=== PATIENT | male | born 1950 | race African-American/Black ===

== ENCOUNTER 2024-12-26 08:52 | Emergency (ER) | payer MEDICARE, MEDICAID, SELFPAY ==
[2024-12-26 09:13] VITALS: BP 146/86; PULSE 76; RESP 16; TEMP 36.4; O2SAT 100
--- NOTE | 2024-12-26 09:17 | ED.EYEPROB ---
HPI - Eye Problem General Chief complaint: Eye Problems Stated complaint: right eye red,discharge,puffy Time Seen by Provider: 12/26/24 09:20 Source: patient and RN notes reviewed Mode of arrival: ambulatory Limitations: no limitations History of Present Illness HPI Narrative: 74-year-old male presents to the [facility] with right eye redness, drainage, crusting this morning. Denies any visual changes. Denies any pain. Patient reports that on Wednesday had a yd sale, started the next day. Onset (ago): day(s) Related Data Allergies Allergy/AdvReac Type Severity Reaction Status Date / Time No Known Allergies Allergy Unverified 12/26/24 09:11 Review of Systems Review of Systems: All systems reviewed & are unremarkable except as noted in HPI and below Constitutional: Constitutional: Reports no additional constitutional complaints Eyes: Eyes: Reports as per HPI ENT: Reports system reviewed and no additional complaints, except as documented Cardiovascular: Cardiovascular: Reports no additional cardiovascular complaints, Denies chest pain and Denies dyspnea Respiratory: Respiratory: Reports no additional respiratory complaints, Denies chest congestion, Denies cough and Denies dyspnea Musculoskeletal: Musculoskeletal: Reports no additional musculoskeletal complaints Integumentary/Breasts: Skin/Breast: Reports system reviewed and no additional complaints, except as docu PMFSH Social History Social History Alcohol intake: current Comments At the time of my signature, I reviewed and agree with the nursing past medical, surgical, social, and family history. There is no relevant family history pertinent to the patient complaint. Exam Const: General: cooperative, healthy appearing, comfortable, no acute distress, well developed, alert and well nourished Nutritional Appearance: well nourished Orientation/consciousness: patient oriented x3 Limitations: no limitations HENMT: Head: normal to inspection Eyes: General: appearance normal, both eyes and all related structures Visual Jaime: normal visual jaime by confrontation Alignment and Position: alignment normal Eyelids: eyelids normal Conjunctivae: conjunctival abnormality bilateral conjunctival injection and discharge other (Clear drainage) Neck: Neck: normal visual inspection, full ROM, no lymphadenopathy and no meningeal signs Chest: Chest palpation & inspection: normal inspection of the chest Resp: Effort & Inspection: normal respiratory effort and able to speak in complete sentences Auscultation: clear to auscultation bilaterally, no crackles, no rales, no rhonchi and no wheezes Cardio: Rate: regular rate Skin: General skin exam: normal color and no rashes or lesions noted Neuro: General: patient oriented x3, gait normal, moves all extremities and no meningeal signs Cognition (Neuro): normal cognition Speech: normal speech Gait exam (Neuro): Normal gait present Extrem: General: normal to inspection, full ROM, capillary refill normal and normal gait Psych: Appearance: grossly normal and well kempt Mental Status: mental status grossly normal Speech and movement: Normal speech and movement present and Clear speech present Affect: normal affect Attitude: cooperative Course Course Level of Care: Express Care Visit Vital Signs Vital signs: Vital Signs Temperature 97.6 F 12/26/24 09:13 Pulse Rate 76 12/26/24 09:13 Respiratory Rate 16 12/26/24 09:13 Blood Pressure 146/86 H 12/26/24 09:13 Pulse Oximetry 100 12/26/24 09:13 Oxygen Delivery Room Air 12/26/24 09:13 Temperature 97.6 F 12/26/24 09:13 Pulse Rate 76 12/26/24 09:13 Respiratory Rate 16 12/26/24 09:13 Blood Pressure 146/86 H 12/26/24 09:13 Pulse Oximetry 100 12/26/24 09:13 Oxygen Delivery Room Air 12/26/24 09:13 Reviewed MDM - Eye Problem MDM Narrative Medical decision making narrative: Patient sitting comfortably in exam room. Nontoxic, vitals are stable. Patient presents with concerns for eye irritation. Denies any trauma. Discussed conjunctivitis most likely allergen but will cover due to patient's age in symptoms with an antibiotic. Patient appropriate for outpatient treatment with close follow-up Discharge instructions reviewed with patient, as well as provided in writing per nursing staff. The instructions also include specific and strict return/GO TO THE ER as well as f/u information. All questions have been answered, and the patient deny any further questions with discharge and discharge plan. Some parts of this dictation were generated by voice recognition software and may contain typographical and/or grammatical inaccuracies. Differential Diagnosis Differential diagnosis: Likely corneal abrasion and conjunctivitis Critical Care Time Critical Care Time Critical Care Time: No Discharge Plan Discharge Clinical Impression: Conjunctivitis Qualifiers: Conjunctivitis type: acute Acute conjunctivitis type: unspecified Patient Disposition: Home Condition: Stable Instructions: Conjunctivitis (ED) Additional Instructions: Today your blood pressure was 146/86 Apply a cool, damp compress to your affected eye. Be sure to use a clean cloth each time to avoid spreading the infection. Gently clean your eyes with wet cotton balls or pads to remove crusty buildup or irritating discharge. Use eye drops as prescribed. Maintain good hygiene and only touch your eyes with freshly washed hands. You should follow-up with an eye doctor within the next 72 hours Tj: Harris- [phone] [facility] [phone] [facility] [phone] Laith: [facility] [phone] or [phone] [facility] [phone] [facility] [phone] [facility] [phone] [facility]- [phone] Patient Language: Serbian Prescriptions: New ofloxacin 0.3 % drops See Rx Instructions EACH EYE .COMPLEX Qty: 5 0RF Rx Instructions: put 1 drop into each eye every 2-4 h x 2 days, then 1 drop 4 times/day days 3-7 Follow-up/Referrals: PHYSICIAN,TERRAZZO LAYER HELPER [Primary Care Provider] - Time of Disposition: 09:42
== END 2024-12-26 09:46 | disposition home or self-care (01) ==
PROVIDERS: Emergency Provider Nurse Practitioner
DX: H10.9 Unspecified conjunctivitis (principal)
CPT/HCPCS: 99213; G0463

== ENCOUNTER 2025-03-20 11:15 | Emergency (ER) | payer MEDICARE, MEDICAID, SELFPAY ==
[2025-03-20 11:24] VITALS: BP 166/77; PULSE 83; RESP 14; TEMP 36.6; O2SAT 96
--- NOTE | 2025-03-20 11:28 | ED.EYEPROB ---
HPI - Eye Problem General Chief complaint: Eye Problems Stated complaint: R Eye Irritation Time Seen by Provider: 03/20/25 11:28 Source: patient Mode of arrival: ambulatory Limitations: no limitations History of Present Illness HPI Narrative: 74-year-old male presented for complaint of right upper eyelid swelling, redness, and pain to touch. Onset 2 days. States he has been waking with crust to the lashes and has noted yellow drainage at times. Patient does not were contact lenses. He denies vision changes, photophobia, foreign body sensation, eye injury, or headache. chief complaint: eye pain Related Data Allergies Allergy/AdvReac Type Severity Reaction Status Date / Time No Known Allergies Allergy Verified 03/20/25 11:17 Review of Systems Review of Systems: CONSTITUTIONAL: Denies body aches, fever, chills EYES:Endorses swelling, redness and pain to right upper eyelid Denies visual changes, FB sensation, photophobia ENT: Denies rhinorrhea, congestion, sore throat, or otalgia. CARDIOVASCULAR: Denies chest pain, palpitations RESPIRATORY: Denies cough or dyspnea. SKIN: Denies rash, itching, or wounds. NEUROLOGIC: Denies headache All systems reviewed & are unremarkable except as noted in HPI and below PMFSH Social History Social History Alcohol intake: current Comments At time of signature, I have reviewed and agree with nursing past medical, surgical, social and family history unless otherwise noted. Please see nursing chart for further information. There is no relevant family history pertinent to the presenting complaint Exam Narrative: GENERAL: Well-appearing HEAD: Normocephalic, atraumatic. EYES: right upper eye lid swelling, redness, localized tenderness; internal hordeolum noted. No conjunctival injection. PERRLA EOMI. Lid eversion Shows no FB ENT: Mucous membranes pink and moist. No rhinorrhea. HEART: Regular rate and rhythm. ABDOMEN: Soft, nontender, nondistended SKIN: Warm, dry, no rash. Normal skin turgor. NEURO: No focal deficits. Alert and oriented x3 PSYCH: Normal affect. Course Course Emergency Course: Patient is aware of diagnosis, understands and agrees to treatment plan. Anticipatory guidance given. Patient agrees to follow-up as directed and is aware of reasons to seek care at the emergency department. Portions of this record may have been created with voice recognition software Level of Care: Express Care Visit Vital Signs Vital signs: Vital Signs Temperature 98 F 03/20/25 11:24 Pulse Rate 83 03/20/25 11:24 Respiratory Rate 14 03/20/25 11:24 Blood Pressure 166/77 H 03/20/25 11:24 Pulse Oximetry 96 03/20/25 11:24 Oxygen Delivery Room Air 03/20/25 11:24 Temperature 98 F 03/20/25 11:24 Pulse Rate 83 03/20/25 11:24 Respiratory Rate 14 03/20/25 11:24 Blood Pressure 166/77 H 03/20/25 11:24 Pulse Oximetry 96 03/20/25 11:24 Oxygen Delivery Room Air 03/20/25 11:24 MDM - Eye Problem MDM Narrative Medical decision making narrative: Discussed physical exam findings consistent with right upper eyelid internal hordeolum. Reviewed treatment measures at least, patient does not have a PCP to follow up with therefore will send an antibiotic in case he develops some cellulitis. Provided also with a list of pcp's. Advised supportive measures and signs/symptoms to go to the ER. Pt is appropriate for outpt treatment and f/u. Differential Diagnosis Differential diagnosis: Likely corneal abrasion, conjunctivitis, acute iritis and other Discharge Plan Discharge Clinical Impression: Internal hordeolum of right eye Patient Disposition: Home Condition: Stable Instructions: Antibiotic Jesús, Lázaro (ED) Additional Instructions: Apply warm, moist compresses on the affected area frequently (for 5 to 10 minutes three to five times per day) in order to help with drainage. Massage and gentle wiping of the affected eyelid after the warm compress can also help with drainage. You can use baby shampoo to wash the eye area If you notice redness, swelling and pain surrounding the eye, you can start the antibiotic as directed. If the lesion does not improve within one week, please follow up with an framing mill operator helper for further management. Go to the ER for worsening symptoms or concerns [facility] [phone] [facility] [phone] [facility] [phone] [facility] [phone] Patient Language: Setswana Prescriptions: New cephalexin 500 mg capsule 500 mg PO Q8H 5 Days Qty: 15 0RF Follow-up/Referrals: PHYSICIAN,AIR CONDITIONING SHEET METAL INSTALLER [Primary Care Provider] - Time of Disposition: 11:41
== END 2025-03-20 11:45 | disposition home or self-care (01) ==
PROVIDERS: Emergency Provider Nurse Practitioner Family
DX: H00.021 Hordeolum internum right upper eyelid (principal); I10 Essential (primary) hypertension
CPT/HCPCS: 99213; G0463